=== PATIENT | male | born 1955 | race African-American/Black ===

== ENCOUNTER 2022-08-31 17:53 | Emergency (ER) | payer OTHER ==
[2022-08-31 18:08] VITALS: RESP 18; TEMP 98.2; BMI 20.9
[2022-08-31] MEDS ORDERED: LACTATED RINGERS SOLUTION 1000 ML INFUS.BAG IV ONE (20:00)
[2022-08-31 20:23] LABS: PH,URINE 5.5 (5.0-8.0); URINE APPEARANCE CLEAR; URINE BILIRUBIN NEGATIVE (NEGATIVE); URINE COLOR YELLOW; URINE GLUCOSE (UA) NEGATIVE (NEGATIVE); URINE KETONE NEGATIVE (NEGATIVE); URINE LEUK ESTERASE NEGATIVE (NEGATIVE); URINE NITRITE NEGATIVE (NEGATIVE); URINE PROTEIN TRACE (NEGATIVE); URINE UROBILINOGEN 0.2 mg/dL (0.2-1.0)
[2022-08-31 20:38] LABS: HEMATOCRIT 44.9 % (35.4-49); HEMOGLOBIN 14.5 GM/dL (11.7-16.9); MCHC 32.4 g/dl (32.0-35.9); MEAN CELL VOLUME 89.5 fl (80-96); MEAN PLT VOLUME 9.3 fl (7.5-11.1); PLATELET COUNT 274 10^3/uL (134-434); RBC 5.01 M/mm3 (4.00-5.60); RDW 13.8 % (11.9-15.9); WHITE BLOOD COUNT 3.1 K/mm3 (4.0-10.0)
[2022-08-31 20:44] LABS: CHLORIDE 94 mmol/L (98-107); SODIUM 130 mmol/L (136-145)
[2022-08-31 20:47] LABS: CALCIUM 9.1 mg/dL (8.5-10.1)
[2022-08-31 20:48] LABS: ALBUMIN 3.4 g/dl (3.4-5.0); BLOOD UREA NITROGEN 18.3 mg/dL (7-18); CO2 28 mmol/L (21-32); GLUCOSE,RANDOM 99 mg/dL (74-106)
[2022-08-31 20:51] LABS: CREATININE 1.4 mg/dL (0.55-1.3)
[2022-08-31 20:53] LABS: BILIRUBIN,TOTAL 0.5 mg/dL (0.2-1); TOT PROT 7.7 g/dl (6.4-8.2)
[2022-08-31 20:54] LABS: ALK PHOS 63 U/L (45-117)
[2022-08-31 20:56] LABS: ANION GAP 8 MMOL/L (8-16); SGOT/AST 146 U/L (15-37); SGPT/ALT 53 U/L (13-61)
[2022-08-31 21:22] VITALS: BP 144/101; PULSE 65
[2022-08-31] MEDS ORDERED: DIPHTH,PERTUSS(ACELL),TET 0.5 ML DISP.SYRIN IM ONE ×2 (21:32→23:34)
[2022-08-31 21:40] LABS: CALCIUM 8.6 mg/dL (8.5-10.1)
[2022-08-31 21:41] LABS: BLOOD UREA NITROGEN 17.7 mg/dL (7-18)
[2022-08-31 21:44] LABS: CREATININE 1.3 mg/dL (0.55-1.3)
[2022-08-31 22:05] LABS: ANISOCYTOSIS 0; MACROCYTOSIS 0; PLATELET ESTIMATE NORMAL
[2022-08-31] MEDS ORDERED: LIDOCAINE HCL 1%, 10 MG/ML (50 mL VIAL) SQ ONE (23:11)
[2022-08-31] MEDS ORDERED: LIDOCAINE HCL/PF 1% SDV 5ML VIAL ONE (23:12)
== END 2022-09-01 00:36 | disposition home or self-care (01) ==
LOC: JER 17:53
PROC: 0HQ0XZZ Repair Scalp Skin, External Approach (ICD-10-PCS; principal; 2022-08-31)
PROC: 3E0234Z Introduction of Serum, Toxoid and Vaccine into Muscle, Percutaneous Approach (ICD-10-PCS; 2022-08-31)
DX: U07.1 COVID-19 (principal); S01.81XA Laceration without foreign body of other part of head, initial encounter; R55 Syncope and collapse; W01.0XXA Fall on same level from slipping, tripping and stumbling without subsequent striking against object, initial encounter
CPT/HCPCS: 0241U-QW; 12002-25; 36415; 70450-TC; 71045-TC-FY; 72125-TC; 80048; 80053; 81003; 84484; 85025; 87086; 90471; 90715; 93005; 93010; 99285-25

== ENCOUNTER 2022-09-07 18:04 | Emergency (ER) | payer OTHER ==
[2022-09-07 18:12] VITALS: BP 142/93; PULSE 72; RESP 18; TEMP 97.9; BMI 20.6
== END 2022-09-07 18:40 | disposition home or self-care (01) ==
LOC: JERFT 18:04 → JER 18:04 → JERFT 18:40
DX: Z48.02 Encounter for removal of sutures (principal)
CPT/HCPCS: 99281-25

== ENCOUNTER 2023-11-21 13:37 | Emergency (ER) | payer OTHER ==
[2023-11-21 13:47] VITALS: BP 134/79; PULSE 64; RESP 20; TEMP 97.5; BMI 21.7
[2023-11-21 15:18] LABS: BASO % 0.8 % (0-2.0); EOS % 2.4 % (0-4.5); HEMATOCRIT 40.1 % (35.4-49); HEMOGLOBIN 12.9 GM/dL (11.7-16.9); LYMPH % 13.4 % (8-40); MCH 29.1 pg (25.7-33.7); MCHC 32.1 g/dl (32.0-35.9); MEAN CELL VOLUME 90.8 fl (80-96); MEAN PLT VOLUME 9.1 fl (7.5-11.1); MONO % 9.1 % (3.8-10.2); NEUT % 74.3 % (42.8-82.8); PLATELET COUNT 176 10^3/uL (134-434); RBC 4.41 M/mm3 (4.00-5.60); RDW 13.9 % (11.9-15.9); WHITE BLOOD COUNT 4.2 K/mm3 (4.0-10.0)
[2023-11-21 15:23] LABS: INR 0.99 (0.83-1.09); PROTHROMBIN TIME (PATIENT) 11.5 SEC (9.7-13.0)
[2023-11-21 15:26] LABS: ACTIVATED PTT 37.4 SECONDS (25.2-36.5)
[2023-11-21 15:46] LABS: POTASSIUM 4.3 mmol/L (3.5-5.1)
[2023-11-21 15:48] LABS: ALBUMIN 3.5 g/dl (3.4-5.0)
[2023-11-21 15:53] LABS: BILIRUBIN,TOTAL 0.4 mg/dL (0.2-1); TOT PROT 6.6 g/dl (6.4-8.2)
[2023-11-21] MEDS ORDERED: CEPHALEXIN MONOHYDRATE 500 MG CAPSULE (UD) ONE (18:35)
[2023-11-21] MEDS: CEPHALEXIN MONOHYDRATE 500 MG CAPSULE (UD) PO STA (18:42)
== END 2023-11-21 18:42 | disposition home or self-care (01) ==
LOC: JER 13:37
DX: M79.661 Pain in right lower leg (principal); L03.115 Cellulitis of right lower limb
CPT/HCPCS: 36415; 80053; 85025; 85610; 85730; 86850; 86900; 86901; 93970-TC; 99284-25

== ENCOUNTER 2023-12-24 09:18 | Emergency (ER) | payer OTHER ==
[2023-12-24 09:24] VITALS: BP 143/88; PULSE 82; RESP 18; TEMP 97.5; BMI 21.7
[2023-12-24] MEDS ORDERED: ACETAMINOPHEN INJECTION 100 ML IVPB ONE (10:45)
[2023-12-24] MEDS: ACETAMINOPHEN 1000 MG/100 ML BAG IVPB ONE (10:55)
[2023-12-24 11:11] LABS: INR 1.03 (0.83-1.09); PROTHROMBIN TIME (PATIENT) 11.9 SEC (9.7-13.0)
[2023-12-24 11:14] LABS: ACTIVATED PTT 38.1 SECONDS (25.2-36.5)
[2023-12-24 11:27] LABS: POTASSIUM 3.8 mmol/L (3.5-5.1)
[2023-12-24 11:28] LABS: BASO % 0.9 % (0-2.0); EOS % 1.3 % (0-4.5); HEMATOCRIT 43.2 % (35.4-49); HEMOGLOBIN 13.5 GM/dL (11.7-16.9); LYMPH % 6.8 % (8-40); MCH 28.6 pg (25.7-33.7); MCHC 31.3 g/dl (32.0-35.9); MEAN CELL VOLUME 91.1 fl (80-96); MONO % 7.9 % (3.8-10.2); NEUT % 83.1 % (42.8-82.8); PLATELET COUNT 177 10^3/uL (134-434); RBC 4.74 M/mm3 (4.00-5.60); RDW 13.7 % (11.9-15.9); WHITE BLOOD COUNT 5.6 K/mm3 (4.0-10.0)
[2023-12-24 11:29] LABS: CALCIUM 9.3 mg/dL (8.5-10.1)
[2023-12-24 11:30] LABS: ALBUMIN 3.8 g/dl (3.4-5.0); BLOOD UREA NITROGEN 13.5 mg/dL (7-18)
[2023-12-24 11:33] LABS: CREATININE 1.1 mg/dL (0.55-1.3)
[2023-12-24 11:35] LABS: BILIRUBIN,TOTAL 0.6 mg/dL (0.2-1); TOT PROT 7.2 g/dl (6.4-8.2)
[2023-12-24 11:38] LABS: N-TERMINAL BNP 99.3 pg/ml (5-125)
== END 2023-12-24 15:05 | disposition home or self-care (01) ==
LOC: JER 09:18
PROC: 3E033NZ Introduction of Analgesics, Hypnotics, Sedatives into Peripheral Vein, Percutaneous Approach (ICD-10-PCS; principal; 2023-12-24)
DX: R07.89 Other chest pain (principal); R07.0 Pain in throat; Z20.822 Contact with and (suspected) exposure to COVID-19
CPT/HCPCS: 0241U-QW; 36415; 70490-TC; 71045-TC-FY; 80053; 83880; 84484; 85025; 85610; 85730; 86850; 86900; 86901; 93005; 93010; 99285-25; J0131